=== PATIENT | female | born 2000 | race African-American/Black ===

== ENCOUNTER 2019-04-18 00:47 | Emergency (ER) | payer OTHER ==
[2019-04-18] MEDS ORDERED: Tetracaine 0.5% OPTH.SOL 4 ML* 1 DROP BTL ONE (01:10)
[2019-04-18] MEDS ORDERED: Fluorescein Sodium TOPICAL* 1 MG TEST STRIP OPHTHALMIC ONE (01:10)
[2019-04-18] MEDS ORDERED: Polymyx/Trimethoprim OPTH* 10 ML BTL RIGHT EYE ONE (01:24)
--- NOTE | 2019-04-18 01:24 | ED ---
Throat Pain/Nasal Congestion - HPI Summary HPI Summary: 18 year old female presents with foreign body to right eye today. States that something feel from the ceiling into her right eye. She has not been able to remove it. She said it hurts to open her eyes. Does not wear contacts or glasses. No blurry vision. No photophobia. - History of Current Complaint Chief Complaint: EDEyeProblem Time Seen by Provider: 04/18/19 01:08 - Allergies/Home Medications Allergies/Adverse Reactions: Allergies Allergy/AdvReac Type Severity Reaction Status Date / Time peanut Allergy Rash Verified 04/18/19 00:51 PMH/Surg Hx/FS Hx/Imm Hx Endocrine/Hematology History: Denies: Hx Anticoagulant Therapy Respiratory History: Denies: Hx Asthma Infectious Disease History: No Infectious Disease History: Denies: Traveled Outside the [place] in Last 30 Days - Family History Known Family History: Positive: Non-Contributory - Social History Alcohol Use: None Substance Use Type: Reports: None Smoking Status (MU): Never Smoked Tobacco Review of Systems Negative: Fever Positive: Other - foreign body in right eye Negative: Chest Pain Negative: Shortness Of Breath All Other Systems Reviewed And Are Negative: Yes Physical Exam Triage Information Reviewed: Yes Vital Signs On Initial Exam: Initial Vitals Temp Pulse Resp BP Pulse Ox 97.7 F 56 16 132/61 100 04/18/19 00:49 04/18/19 00:49 04/18/19 00:49 04/18/19 00:49 04/18/19 00:49 Vital Signs Reviewed: Yes Appearance: Positive: Well-Appearing Skin: Positive: Warm, Dry Head/Face: Positive: Normal Head/Face Inspection Eyes: Positive: EOMI, JENAE, Conjunctiva Inflammed, Other: - foreign body in right eye, no uptake on fluroscein exam ENT: Positive: Pharynx normal Respiratory/Lung Sounds: Positive: Clear to Auscultation, Breath Sounds Present Cardiovascular: Positive: Normal, RRR Musculoskeletal: Positive: Normal Neurological: Positive: Normal Psychiatric: Positive: Normal Procedures - Eye Procedure right Alcaine Drops Administered: Yes - no uptake fluroscein exam Eye FB Removal: removal w/ cotton swab Diagnostics - Vital Signs Vital Signs Temp Pulse Resp BP Pulse Ox 04/18/19 00:49 97.7 F 56 16 132/61 100 - Laboratory Lab Statement: Any lab studies that have been ordered have been reviewed, and results considered in the medical decision making process. EENT Course/Dx - Course Course Of Treatment: 18 year old female presents with foreign body to right eye today. States that something feel from the ceiling into her right eye. She has not been able to remove it. She said it hurts to open her eyes. Does not wear contacts or glasses. No blurry vision. No photophobia. On exam has foreign body under upper lid on the right eye. No corneal abrasion seen on fluorescein exam. removed foreign body with Q-tip. Will place patient on Polytrim to precentout infection. Told to follow up with optho if no improvement. Patient understands and agrees plan. - Differential Diagnoses Differential Diagnoses: Conjunctivitis, Corneal Abrasion, Foreign Body - Diagnoses Provider Diagnoses: Foreign body of right eye Discharge ED - Sign-Out/Discharge Documenting (check all that apply): Patient Departure Patient Received Moderate/Deep Sedation with Procedure: No - Discharge Plan Condition: Good Disposition: HOME Patient Education Materials: Eye Foreign Body (ED) Referrals: Spencer Ellison MD [Medical Doctor] - Additional Instructions: Place 1 drop in eye 4 times a day for 5 days Use artificial tears or saline to rinse eye for symptomatic relief Take Tylenol or ibuprofen for pain Follow up with ophthalmology if no improvement in 5 days Return to ED if develop any new or worsening symptoms - Billing Disposition and Condition Condition: GOOD Disposition: Home - Attestation Statements Provider Attestation: I was available for consultation for this patient. I did not evaluate the patient or participate in any medical decision making or disposition decisions unless I am specifically named in the chart as having consulted on the patient. If I have consulted on the patient, please see my own ED note on the patient encounter. Damien Jacobs MD
[2019-04-18 01:37] VITALS: BP 107/64
== END 2019-04-18 01:36 | disposition home or self-care (01) ==
LOC: ED 00:47
DX: T15.11XA Foreign body in conjunctival sac, right eye, initial encounter (principal); X58.XXXA Exposure to other specified factors, initial encounter; Y92.9 Unspecified place or not applicable; Z91.010 Allergy to peanuts
CPT/HCPCS: 65205; 99281; A9270-GY